=== PATIENT | female | born 1980 | race American Indian/Alaskan Native ===

== ENCOUNTER 2018-12-12 07:00 | Outpatient (CLI) | payer OTHER ==
[~2018-12-12] VITALS: Ht 154.9 cm; Wt 70.8 kg
[2018-12-12] MEDS ORDERED: PRENATAL TABLE1 EACH PO (17:52)
[2018-12-12] MEDS ORDERED: LEVOTHYROXINE100 MCG PO (17:52)
[2018-12-12] MEDS ORDERED: PROGESTERONE200 MG PO (17:53)
== END 2018-12-12 13:00 | disposition left against medical advice (07) ==
LOC: OBS/DEL 07:00 → LDR 14:07 → OBS/DEL 14:07 → LDR 18:38
DX: O60.02 Preterm labor without delivery, second trimester (principal); Z34.82 Encounter for supervision of other normal pregnancy, second trimester